=== PATIENT | male | born 1960 | race Two or more races ===

== ENCOUNTER 2024-03-04 12:37 | Emergency (ER) | payer OTHER ==
[~2024-03-04] VITALS: Ht 180.3 cm; Wt 100.4 kg
[2024-03-04 14:56] VITALS: BP 120/66; PULSE 77; RESP 16; TEMP 98.1; O2SAT 94
[2024-03-04] MEDS ORDERED: MELO7.5T7 PO (15:07)
[2024-03-04] MEDS ORDERED: ACET-1881 PO (15:07)
[2024-03-04] MEDS ORDERED: LIDO5DIS21 TOP (15:08)
[2024-03-04] MEDS: KETOROLAC TROMETH 30 MG/ML 1ML VIAL IM ONE (15:21)
== END 2024-03-04 15:42 | disposition home or self-care (01) ==
LOC: ER 12:37
DX: S33.5XXA Sprain of ligaments of lumbar spine, initial encounter (principal); Z79.899 Other long term (current) drug therapy; W01.0XXA Fall on same level from slipping, tripping and stumbling without subsequent striking against object, initial encounter; Y93.89 Activity, other specified; Y92.092 Bedroom in other non-institutional residence as the place of occurrence of the external cause; Y99.8 Other external cause status
CPT/HCPCS: 72070; 72100; 96372; 99284; J1885